=== PATIENT | male | born 2005 | race Caucasian/White ===

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

== ENCOUNTER 2025-01-08 14:29 | Outpatient (CLI) | payer OTHER, SELFPAY ==
[2025-01-08 15:13] LABS: Hematocrit 46.7 % (42.0-52.0); Hemoglobin 15.7 g/dL (14.0-18.0); Mean Corpuscular HGB Conc 33.6 g/dl (32-36); Mean Corpuscular Hemoglobin 28.5 pg (26-34); Mean Corpuscular Volume 84.8 fl (80-100); Platelet Count Result 257 k/mm3 (150-375); Red Blood Count 5.51 M/mm3 (4.6-6.20); Red Cell Distribution Width 12.6 % (11.5-14.5); White Blood Count 6.5 K/mm3 (4.5-10.0)
[2025-01-08 15:29] LABS: Prothrombin Time 13.1 Seconds (11.1-14.7)
[2025-01-08 15:31] LABS: Alanine Aminotransferase 40 U/L (6-50); Albumin Level 4.7 g/dL (3.7-5.6); Alkaline Phosphatase 51 U/L (58-237); Anion Gap 11 mmol/L (4-12); Aspartate Amino Transferase 31 U/L (17-59); Bilirubin,Total 0.8 mg/dL (0.2-1.3); Blood Urea Nitrogen 9 mg/dL (8-21); CRP < 0.5 mg/dL (<1.0); Calcium 9.3 mg/dL (8.9-10.7); Carbon Dioxide 24 mmol/L (22-30); Chloride 105 mmol/L (98-107); Estimated Glomerular Filt Rate > 60; Glucose 97 mg/dL (65-110); Potassium 3.8 mmol/L (3.4-5.0); Sodium 140 mmol/L (134-143); Total Protein 8.5 g/dL (6.3-8.6)
[2025-01-08 16:02] LABS: Erythrocyte Sedimentation Rate 8 mm/hr (0-20)
[2025-01-08 16:13] LABS: Thyroid Stimulating Hormone Reflex 0.947 uIU/mL (0.465-4.68)
[2025-01-10 03:58] LABS: Immunoglobulin A 272 mg/dL (47-310); TTG IGA AB <1.0 U/mL
== END 2025-01-08 14:30 | disposition home or self-care (01) ==
LOC: ANHLAB 14:32
PROVIDERS: PCP Physician Assistant; Visit Provider Nurse Practitioner
DX: K58.0 Irritable bowel syndrome with diarrhea (principal); K21.9 Gastro-esophageal reflux disease without esophagitis; R10.9 Unspecified abdominal pain
CPT/HCPCS: 36415; 80053; 82784; 84443; 85027; 85610; 85652; 86140

== ENCOUNTER 2025-01-28 01:47 | Day surgery (SDC) | payer OTHER, SELFPAY ==
[2025-01-22 14:34] VITALS: BMI 38.3
--- OUTSIDE RECORDS SUMMARY | 2025-01-28 01:49 | XMS_ITS | Clinical Summary ---
Author Organization [facility] Address [address] [place] [address] Care Team Providers Care Roof Truss Machine Tender Name Role Phone Bob Benitez MD Primary Care Provider [phone] Source Comments [facility],non-[facility] Affiliates and Associated Physician Practices is amultiple site organization consisting of ambulatory clinics and hospital sitesin [place], [place], [place] and [place]. This disclosure is being madepursuant to the Care Everywhere program and may not contain all information available regarding this patient. Last updated 18.[facility] [place] Allergies Active Allergy Reactions Criticality Noted Date Comments Penicillins Anaphylaxis High 10/03/2011 Hives & dyspnea Sulfa Drugs Anaphylaxis High 10/03/2011 Hives & breathing difficulty Medications * Be aware that medications may not be up to date on this document. Alwaysverify current medications with the patient. melatonin 1 MG tablet Take 1 Tab by mouth at bedtime. Active fluticasone propionate (FLONASE) 50 MCG/ACT nasal sprayIndications:Al lergic rhinitis,Allergic Conjunctivitis [place] 2 Sprays into each nostril once daily. 1 Bottle 6 3 Active cetirizine (ZYRTEC) 5 MG/5ML syrupIndications:Al lergic rhinitis,Allergic Conjunctivitis Take 2.5 mL by mouth at bedtime. 120 mL 6 3 Active albuterol HFA (PROVENTIL;VENTOLIN ;PROAIR) 108 (90 BASE) MCG/ACT inhalerIndications: Asthma Inhale 2 Puffs by mouth every 6 hours as needed (per an asthma action plan). 1 Inhaler 6 3 Active hydrocortisone (HYTONE) 1 % ointmentIndications :Eczema Apply to affected area 2 times daily as needed (for red, itchy skin). 25 g 6 3 Active Active Problems Problem Noted Date Diagnosed Date Asthma 10/03/2011 Allergic rhinitis 10/03/2011 Overview (10/03/2011): 10/03/11: Allergy SPT + dust mite, mold, tree, ragweed and grass. Allergic conjunctivitis 10/03/2011 Eczema 10/03/2011 Allergy, drug 10/03/2011 Overview (10/03/2011): Penicillins, sulfa antibiotics. Adenoidal hypertrophy 10/03/2011 Urticaria 10/03/2011 Family History Medical History Relation Name Comments Asthma Brother Eczema Brother Allergies Father Allergies Maternal Grandmother Asthma Maternal Grandmother Allergies Mother Relation Name Status Comments Brother Father Maternal Grandmother Mother Social History Tobacco Use Types Packs/Day Years Used Date Smoking Tobacco: Never Assessed Sex and Gender Information Value Date Recorded Sex Assigned at Not on file Legal Sex Male 12:52 PM [employer] Gender Identity Not on file Sexual Orientation Not on file Last Filed Vital Signs Vital Sign Reading Time Taken Comments Blood Pressure 84/54 10/03/2011 1:31 PM CDT Pulse 92 10/03/2011 1:31 PM CDT Temperature - - Respiratory Rate 20 10/03/2011 1:31 PM CDT Oxygen Saturation - - Inhaled Oxygen Concentration - - Weight 23.2 kg (51 lb 1.6 oz) 3 10:22 AM CDT Height 123.2 cm (4' 0.5) 10/02/2012 10 :22 AM CDT Body Mass Index 15.27 10/02/2012 10:22 AM CDT Body Mass Index Percentile 44.23% 10/02 10:22 AM CDT Growth Chart: [facility] (Boys, 2-2 0 Years) Plan of Treatment Health Maintenance Due Date Last Done Comments HIV SCREENING 2020 HPV VACCINE (1 - Male 3-dose series) 2020 MENINGOCOCCAL (Group B) VACC INE SHARED DECISION-MAKING (1 of 2 - Standard) 2021 HEPATITIS C SCREENING 12/15/2023 COVID-19 VACCINE (1 - 2023-2 5 season) 2024 DEPRESSION SCREENING 07/16/2024 DTAP/TDAP/TD VACCINES (1 - Tdap) 2024 HEPATITIS B VACCINE (1 of 3 - 19+ 3-dose series) 2024 INFLUENZA VACCINE (#1) 2025 ZOSTER VACCINE (1 of 2) 12/20/2055 HIB VACCINE Aged Out No longer eligi ble based on patient's age to complete this topic MENINGOCOCCAL GROUPS A/C/Y/W VACCINE Aged Out No longer eligible b ased on patient's age to complete this topic PNEUMOCOCCAL VACCINE Aged Out No long er eligible based on patient's age to complete this topic Insurance MEDICAID - [place] Care Teams Roof Truss Machine Tender Relationship Specialty Start Date End Date Bob Benitez MD [address] [place] [address] JLAYN Jimneez [phone] PCP - General Family Medicine 10/02/12
--- OUTSIDE RECORDS SUMMARY | 2025-01-28 01:50 | XMS_ITS | Clinical Summary ---
Author Organization [facility] Address [address] [place] [address] Care Team Providers Care Greens Keeper Name Role Phone None, Provider MD Primary Care Provider Unavaila ble Allergies Active Allergy Reactions Criticality Noted Date Comments Penicillins Anaphylaxis High 12/11/2024 Sulfa Antibiotics Anaphylaxis High 12/11/2024 Medications ondansetron (ZOFRAN) 4 MG tablet Take 1 tablet (4 mg total) by mouth every 8 (eight) hours as needed for Nausea. 20 tablet 12/12/2024 Active Encounters Date Type Department Care Team Description 12/12/2024 5:20 PM CDT - 12/12/2024 7:45 PM CDT Emergency [facility] [place] [address] Sayra Rogers NP Abdominal Pain; Vomiting Discharge Disposition: Home or Self Care (Routine Discharge) 12/12/2024 Travel 12/11/2024 6:00 AM CDT - 12/11/2024 9:18 AM CDT Emergency [facility] [place] [address] Dar Rios MD Abdominal Pain; Vomiting Discharge Disposition: Home or Self Care with Planned Inpatient Readmission 12/11/2024 Travel from Last 3 Months Social History Tobacco Use Types Packs/Day Years Used Date Smoking Tobacco: Never Smokeless Tobacco: Never Tobacco Cessation:Counseling Given: Not Answered Alcohol Use Standard Drinks/Week Comments Never 0 (1 standard drink = 0.6 oz pur e alcohol) Sex and Gender Information Value Date Recorded Sex Assigned at Male 12/11/2024 6:05 AM CDT Legal Sex Male 7:16 PM CDT Gender Identity Not on file Sexual Orientation Not on file Last Filed Vital Signs Vital Sign Reading Time Taken Comments Blood Pressure 127/96 12/12/2024 6:30 PM CDT Pulse 80 12/12/2024 6:00 PM CDT Temperature 36.7 C (98 F) 12/12/2024 6:30 PM CDT Respiratory Rate 24 12/12/2024 6:30 PM CDT Oxygen Saturation 99% 12/12/2024 6:30 PM CDT Inhaled Oxygen Concentration - - Weight 115.7 kg (255 lb) 12/12/2024 5:11 PM CDT Height 177.8 cm (5' 10) 12/12/2024 5:11 PM CDT Body Mass Index 36.59 12/12/2024 5:11 PM CDT Body Mass Index Percentile 98.40% 12/12/2024 5:1 1 PM CDT Growth Chart: CDC (Boys, 2-2 0 Years) Plan of Treatment Health Maintenance Due Date Last Done Comments Annual Physical 2008 DTaP, Tdap and Td Vaccines (6 - Tdap) 2016 03/14/2012, 06/27/2011, 05/01/2011, Additional history exists HPV Vaccines (1 - Male 3-dose series) 2020 Meningococcal B Vaccine (1 of 2 - Standard) 2021 Hepatitis C 12/20/2023 COVID-19 Vaccine ( - season) 2024 Pneumococcal Vaccine: Pediatrics (0 to 5 Years) and At-Risk Patients (6 to 49 Years) Aged Out 07/02/2006, 05/01/2006, 02/26/2006 No longer eligible based on patient's age to complete this topic Hepatitis B Vaccines Completed 03/14/2012, 06/27/2011, 05/01/2011, Additional history exists Meningococcal Vaccine Aged Out No nando arsalan eligible based on patient's age to complete this topic RSV Immunizations Under 20 Months Aged Out No longer eligible based on patient's age to complete this topic Procedures Procedure Name Priority Date/Time Associated Diagnosis Comments ECG 12-LEAD Routine 12/12/2024 5:42 PM CDT LIPASE STAT 12/12/2024 5:37 PM CDT COMPREHENSIVE METABOLIC PANEL STAT 12/12/2024 5:37 PM CDT CBC W/DIFF AUTOMATED STAT 12/12/2024 5:37 PM CDT LACTIC ACID W REFLEX (SEPSIS) STAT 12/12/2024 5:[address] ABD+PEL W CON STAT 12/11/2024 7:33 AM CDT LIPASE STAT 12/11/2024 6:17 AM CDT COMPREHENSIVE METABOLIC PANEL STAT 12/11/2024 6:17 AM CDT CBC W/DIFF AUTOMATED STAT 12/11/2024 6:17 AM CDT from Last 3 Months Results * ECG 12 lead (12/12/2024 5:42 PM CDT) 12/12/2024 5:42 PM CDT Narrative [facility] RAD - 12/12/2024 10:34 PM CDT [place] [address] Test Date: 2024-12-12 Pat Name: CAITLYN BROWN Department: Room: [facility] Gender: Male Vp Transportation: [id number] : 2005 Requested By: SAYRA ROGERS Order Number: [id number] Reading MD: Alejandro Steinberg Measurements Intervals [place] Rate: 131 P: 48 ND: 138 QRS: 73 QRSD: 85 T: 34 QT: 311 QTc: 460 Interpretive Statements SINUS TACHYCARDIA ABNORMAL RHYTHM ECG No previous ECG available for comparison Procedure Note Alejandro Steinberg MD - 12/12/[address] Test Date: 2024-12-12 Pat Name: CAITLYN BROWN Department: 41 Room: [facility] Gender: Male Vp Transportation: [id number] : 2005 Requested By: SAYRA ROGERS Order Number: [id number] Reading MD: Alejandro Steinberg Measurements Intervals [place] Rate: 131 P: 48 ND: 138 QRS: 73 QRSD: 85 T: 34 QT: 311 QTc: 460 Interpretive Statements SINUS TACHYCARDIA ABNORMAL RHYTHM ECG No previous ECG available for comparison us Sayra Rogers CASH CONTROLLER ECG ORDERABLES Final Result [facility] ([facility] RAD * (ABNORMAL) COMPREHENSIVE METABOLIC PANEL (12/12/2024 5:37 PM CDT) Only the most recent of2 resultswithin the time period is included. GLUCOSE 119(H) 70 - 99 MG/DL 12/12/2024 6:12 PM CDT [facility] BUN 8 7 - 18 MG/DL 12/12/2024 6:12 PM CDT [facility] CREATININE S/P/B 1.00 0.7 - 1.3 MG/DL 12/12/2024 6:12 PM CDT [facility] SODIUM S/P/B 139 136 - 145 MMOL/L 12/12/2024 6:12 PM CDT [facility] POTASSIUM S/P/B 3.4(L) 3.5 - 5.1 MMOL/L 12/12/2024 6:12 PM CDT [facility] CHLORIDE S/P/B 108 97 - 115 MMOL/L 12/12/2024 6:12 PM CDT [facility] CO2 21.8 21 - 32 MMOL/L 12/12/2024 6:12 PM CDT [facility] CALCIUM S/P/B 10.3(H) 8.5 - 10.1 MG/DL 12/12/2024 6:12 PM T [facility] BILIRUBIN TOTAL S/P/B 1.6(H) 0.2 - 1.1 MG/DL 12/12/2024 6:12 PM CDT [facility] Comment: THIS ASSAY IS NOT RECOMMENDED FOR PATIENTS UNDERGOING TREATMENT WITH ELTROMBOPAG DUE TO THE POTENTIAL FOR FALSELY ELEVATED RESULTS. TOTAL PROTEIN S/P/B 9.2(H) 6.4 - 8.2 G/DL 12/12/2024 6:12 PM T [facility] ALBUMIN S/P/B 4.7 3.4 - 5.0 G/DL 12/12/2024 6:12 PM T [facility] AST 41(H) 15 - 37 U/L 12/12/2024 6:12 PM T [facility] ALT 69(H) 16 - 60 U/L 12/12/2024 6:12 PM T [facility] ALKALINE PHOSPHATASE S/P/B 65 65 - 260 U/L 12/12/2024 6:12 PM T [facility] ANION GAP 9.2 2 - 10 MMOL/L 12/12/2024 6:12 PM T [facility] BUN CREATININE RATIO 8.0 6 - 26 12/12/2024 6:12 PM T [facility] A/G RATIO 1.0 1.0 - 2.0 RATIO 12/12/2024 6:12 PM T [facility] GFR ESTIMATE >90 >90 ML/MIN/1.7 3 M2 12/12/2024 6:12 PM CDT [facility] Comment: NOTE: eGFR is not calculated for patients <18 years of age or gender unknown. This is an estimated GFR calculation using the new CKD EPI creatinine equation without race and so does not require a correction factor for race. This estimated GFR should not be used for calculating drug doses. 12/12/2024 5:37 PM CDT us Sayra Rogers NP LABORATORY Final Result [facility] [address] [place] [address], [place] [phone] * (ABNORMAL) CBC W/DIFF AUTOMATED (12/12/2024 5:37 PM CDT) Only the most recent of2 resultswithin the time period is included. WBC 9.77 4.5 - 13.0 x10'3/uL 12/12/2024 5:46 PM CDT [facility] RBC 6.01 4.70 - 6.10 x10'6/uL 12/12/2024 5:46 PM CDT [facility] HGB 17.0 14.0 - 18.0 G/DL 12/12/2024 5:46 PM CDT [facility] HCT 48.3 43.0 - 54.0 % 12/12/2024 5:46 PM CDT [facility] MCV 80.4 80.0 - 94.0 FL 12/12/2024 5:46 PM CDT [facility] MCH 28.3 27.0 - 31.0 PG 12/12/2024 5:46 PM CDT [facility] MCHC 35.2 32.0 - 36.0 G/DL 12/12/2024 5:46 PM CDT [facility] RDW 12.7 11.5 - 14.5 % 12/12/2024 5:46 PM CDT [facility] PLT 313 130 - 400 x10'3/uL 12/12/2024 5:46 PM CDT [facility] MPV 11.6 9.3 - 12.2 FL 12/12/2024 5:46 PM CDT [facility] DIFFERENTIAL TYPE AUTOMATED DIFFERENTIAL 12/12/2024 5:46 PM CDT [facility] NEUTROPHILS % 72.7 % 12/12/2024 5:46 PM CDT [facility] LYMPHOCYTES % 16.2 % 12/12/2024 5:46 PM CDT [facility] MONOCYTES % 9.4 % 12/12/2024 5:46 PM CDT [facility] EOSINOPHILS 0.7 % 12/12/2024 5:46 PM CDT [facility] BASOPHILS 0.6 % 12/12/2024 5:46 PM CDT [facility] IMMATURE GRANS % 0.4 % 12/13/19 5:46 PM CDT [facility] ABS. NEUTROPHILS 7.10 1.80 - 8.00 x10'3/uL 12/12/2024 5:46 PM CDT [facility] ABS. LYMPHOCYTES 1.58 1.20 - 5.20 x10'3/uL 12/12/2024 5:46 PM CDT [facility] ABS. MONOCYTES 0.92(H) 0.30 - 0.82 x10'3/uL 12/12/2024 5:46 PM CDT [facility] ABS. EOSINOPHILS 0.07 0.04 - 0.54 x10'3/uL 12/12/2024 5:46 PM CDT [facility] ABS. BASOPHILS 0.06 0.01 - 0.08 x10'3/uL 12/12/2024 5:46 PM CDT [facility] ABS. IMMATURE GRANULOCYTES 0.04 0.00 - 0.49 x10'3/uL 12/12/2024 5:46 PM CDT [facility] 12/12/2024 5:37 PM CDT Sayra Rogers NP LABORATORY Final Result Performing Organization Address City/[facility]/ZIP Co de Phone Number [facility] [address] [place] [address], [place] [phone] * LIPASE (12/12/2024 5:37 PM CDT) Only the most recent of2 resultswithin the time period is included. LIPASE 27 13 - 75 UNITS/L 12/12/2024 6:12 PM CDT [facility] 12/12/2024 5:37 PM CDT Sayra Rogers NP LABORATORY Final Result Performing Organization Address [facility] de Phone Number [facility] [address] [place] [address], [place] [phone] * (ABNORMAL) LACTIC ACID W REFLEX (SEPSIS) (12/12/2024 5:36 PM CDT) LACTIC ACID VENOUS 2.1(H) 0.4 - 2.0 MMOL/L 12/12/2024 6:26 PM CDT [facility] Comment: Critical Result(s) Called at: 18:25:48 on 12/12/2024 by: NASRIN LUNDBERG to and read back by:ISIAH GUADALUPE RN 12/12/2024 5:36 PM CDT us Sayra Rogers NP LABORATORY Final Result Performing Organization Address City/[facility]/ZIP Co de Phone Number [facility] [address] [place] [address], * CT ABD+PEL W CON (12/11/2024 7:33 AM CDT) Anatomical Region Laterality Modality Abdomen Computed Tomogra phy 12/11/2024 7:56 AM CDT Impressions 12/11/2024 8:33 AM CDT IMPRESSION: 1. No bowel obstruction. No free air. Normal appendix. 2. No ureteral stones. No hydronephrosis. 3. Sub-6 mm lung nodule, right lower lobe. Recommend follow-up CT chest without contrast in one year (Per Fleischner Society guidelines). Any follow-up recommendations contained in this report for incidentally detected pulmonary nodules were made according to current recommended guidelines based at a minimum on nodule size and patient risk factors. Referred By: Interpreted By: Rafael Woodruff MD, 12/11/2024 7:56 AM Narrative 12/11/2024 8:33 AM CDT [facility] [address] [place], [place] [address] EXAMINATION: CT ABD+PEL W CON DATE: 12/11/2024 7:15 AM CLINICAL HISTORY: Abdominal pain. presents with abdominal pain. Reports pain is mainly located in the left upper and lower quadrant. Reports associated nausea and vomiting. Symptoms been going on for 3 to 4 days. No fevers or chills COMPARISON: None. TECHNIQUE: Computed tomography of the abdomen and pelvis was obtained after administration of intravenous contrast, 100 mL of Isovue-370, without immediate complication according to routine protocol. A dose lowering technique was used for this procedure, which may include, but is not limited to, dose reduction technique, automated exposure control, the use of iterative reconstruction, and ALARA (As Low As Reasonably Achievable) / Image Gently techniques. FINDINGS: Bases of lungs are unremarkable. Sub-6 mm lung nodule in the right lower lobe. Normal heart size. No significant pericardial effusion. The liver, spleen, pancreas, and adrenal glands are normal. Phrygian cap, gallbladder. Kidneys enhance symmetrically and promptly. No ureteral stones. No hydronephrosis. Abdominal aorta is normal in caliber. No retroperitoneal hematoma. No bowel obstruction. No free air. No ascites. Normal appendix. Subcentimeter retroperitoneal and mesenteric lymph nodes. No large free pelvic fluid. Nondistended urinary bladder. No inguinal or pelvic lymphadenopathy. No destructive bone lesions. Procedure Note Rafael Woodruff MD - 12/11/2024 [facility] [address] [place], [place] [address] EXAMINATION: CT ABD+PEL W CON DATE: 12/11/2024 7:15 AM CLINICAL HISTORY: Abdominal pain. presents with abdominal pain. Reportspain is mainly located in the left upper and lower quadrant. Reportsassociated nausea and vomiting. Symptoms been going on for 3 to 4 days.No fevers or chills COMPARISON: None. TECHNIQUE: Computed tomography of the abdomen and pelvis was obtainedafter administration of intravenous contrast, 100 mL of Isovue-370,without immediate complication according to routine protocol. A doselowering technique was used for this procedure, which may include, but isnot limited to, dose reduction technique, automated exposure control, theuse of iterative reconstruction, and ALARA (As Low As ReasonablyAchievable) / Image Gently techniques. FINDINGS: Bases of lungs are unremarkable. Sub-6 mm lung nodule in the right lowerlobe. Normal heart size. No significant pericardial effusion. The liver, spleen, pancreas, and adrenal glands are normal. Phrygian cap,gallbladder. Kidneys enhance symmetrically and promptly. No ureteralstones. No hydronephrosis. Abdominal aorta is normal in caliber. No retroperitoneal hematoma. Nobowel obstruction. No free air. No ascites. Normal appendix.Subcentimeter retroperitoneal and mesenteric lymph nodes. No large free pelvic fluid. Nondistended urinary bladder. No inguinal orpelvic lymphadenopathy. No destructive bone lesions. IMPRESSION: 1. No bowel obstruction. No free air. Normal appendix. 2. No ureteral stones. No hydronephrosis. 3. Sub-6 mm lung nodule, right lower lobe. Recommend follow-up CT chestwithout contrast in one year (Per Fleischner Society guidelines). Anyfollow-up recommendations contained in this report for incidentallydetected pulmonary nodules were made according to current recommendedguidelines based at a minimum on nodule size and patient risk factors. Referred By: Interpreted By: Rafael Woodruff MD, 12/11/2024 7:56 AM Dar Rios MD CT Final Result from Last 3 Months Insurance [place] Care Teams Greens Keeper Relationship Specialty Start Date End Date None, Provider, PCP - General UNKNOWN PHYSICIAN SPECIALTY 12/11/24
[2025-01-28 08:16] VITALS: BP 141/61; PULSE 86; RESP 20; TEMP 36.7; O2SAT 99; BMI 39.1
--- NOTE | 2025-01-28 08:23 | SUR.PREOP ---
Patient reports drinking powerade at 0800 in [address]. Patient states I couldn't peel my lips apart I needed something to drink. Dr. Fernandez aware.
[2025-01-28] MEDS: LACTATED RINGERS 1,000 ML 150 ML IV CONT (08:29)
[2025-01-28] MEDS: SIMETHICONE ORAL SUSPENSION 20 MG/0.3 ML 30 ML BOTTLE 1.8 ML PO (08:33)
--- NOTE | 2025-01-28 08:44 | P.PNAN_ITS ---
Anes - Initial Pre Proc Eval Procedure: Operation Date: 01/28/25 09:30 Proposed Procedures p EGD & Diagnostic Colonoscopy - Compa Srinivasan MD Date/Time: 01/28/25 08:44 Surgeon: Compa Srinivasan MD Pre Op Diagnosis: Other specified diseases of the digestive system Patient Data Age: 19 Gender: M Height: 1.73 m Weight: 116.8 kg Last Vital Signs Temp 98.1 F 01/28/25 08:16 Pulse 86 01/28/25 08:16 Resp 20 01/28/25 08:16 BP 141/61 H 01/28/25 08:16 Pulse Ox 99 01/28/25 08:16 O2 Del Method Room Air 01/28/25 08:16 Allergies Allergy/AdvReac Type Severity Reaction Status Date / Time amoxicillin (From Augmentin) Allergy Rash Verified 01/28/25 08:15 clavulanic acid (From Allergy Rash Verified 01/28/25 08:15 Augmentin) Penicillins Allergy Rash Verified 01/28/25 08:15 Sulfa (Sulfonamide Allergy Rash Verified 01/28/25 08:15 Antibiotics) Home Medications ?Medication ?Instructions ?Recorded ?Confirmed ?Type amitriptyline 25 mg tablet 25 mg PO QHS 01/08/25 01/28/25 History hyoscyamine sulfate 0.125 mg 0.125 mg PO QID abdominal pain 01/08/25 01/28/25 Rx tablet (Levsin) #120 tabs pantoprazole 40 mg tablet,delayed 40 mg PO QAM #30 tabs 01/08/25 01/28/25 Rx release Patient hx anesthesia problems: none Family hx anesthesia problems: none Results Review: All pre-operative results and documents have been reviewed as part of the pre- operative evaluation. FOR[facility]LY [facility] Social History Social History Smoking status: Current every day smoker Substance use type: marijuana Living arrangements: with family Spiritual care concerns: No Anes - Eval Final PreProcedure Day of Procedure 01/28/25 08:44 Patient weight: morbidly obese Heart: regular rate and rhythm Lungs: clear to auscultation Airway: Mallampati scale class II Neurological: alert and oriented Last oral intake: >/= 8 hours ASA classification: III Emergent: no Anesthetic plan: proceed Anesthesia type and monitoring: general GIVS and standard monitoring Results Review: All pre-operative results and documents have been reviewed as part of the pre- operative evaluation. Informed Consent: The patient's anesthetic plan and its attendant risks and benefits were discussed with the patient/family/POA. Questions were solicited and answers provided to the satisfaction of the patient/family/POA.
--- NOTE | 2025-01-28 09:11 | P.HP_ITS ---
H&P: HPI History of Present Illness Date/Time: 01/28/25 09:11 Chief Complaint: Chronic diarrhea- GERD-dyspepsia Narrative: this patient has more than 10 years of chronic diarrhea, sometimes associated with minimal blood, especially accompanied by abdominal pain crisis which are sometimes severe. He denies weight loss, nausea vomiting but does endorse significant heartburn and epigastric discomfort after eating. He is referred for EGD and colonoscopy. Review of Systems Review of Systems: All systems reviewed & are unremarkable except as noted in HPI and below PMFSH Social History Social History Smoking status: Current every day smoker Substance use type: marijuana Living arrangements: with family Spiritual care concerns: No Meds Home Medications and Allergies Home Medications ?Medication ?Instructions ?Recorded ?Confirmed ?Type amitriptyline 25 mg tablet 25 mg PO QHS 01/08/25 01/28/25 History hyoscyamine sulfate 0.125 mg 0.125 mg PO QID abdominal pain 01/08/25 01/28/25 Rx tablet (Levsin) #120 tabs pantoprazole 40 mg tablet,delayed 40 mg PO QAM #30 tabs 01/08/25 01/28/25 Rx release Allergies Allergy/AdvReac Type Severity Reaction Status Date / Time amoxicillin (From Augmentin) Allergy Rash Verified 01/28/25 08:15 clavulanic acid (From Allergy Rash Verified 01/28/25 08:15 Augmentin) Penicillins Allergy Rash Verified 01/28/25 08:15 Sulfa (Sulfonamide Allergy Rash Verified 01/28/25 08:15 Antibiotics) Vital Signs Vital Signs - 24 hr 01/28/25 08:16 Temperature 98.1 F Pulse Rate 86 Respiratory Rate 20 Blood Pressure 141/61 H Pulse Oximetry 99 Oxygen Delivery Room Air Exam Const: General: cooperative and healthy appearing Resp: Effort & Inspection: normal respiratory effort and able to speak in complete sentences Auscultation: clear to auscultation bilaterally Cardio: Rate: regular rate Rhythm: regular rhythm GI: Inspection: normal to inspection GI Palp: No No hepatosplenomegaly present Auscultation: normal bowel sounds Rectal Exam: deferred Skin: General skin exam: normal color Psych: Appearance: grossly normal Mental Status: mental status grossly normal Assessment and Plan Assessment and plan (1) Diarrhea: Code(s): R19.7 - Diarrhea, unspecified Status: Acute Assessment and Plan: The patient is deemed a good candidate for the procedures. Consent signed. Will proceed.
--- NOTE | 2025-01-28 09:32 | SUR.OPER ---
EGD ended at 926, colon began at 932.
--- NOTE | 2025-01-28 09:35 | S_PTH ---
PATIENT: Stephon Chavira LOC: [facility] U#:[id number] AGE/SX: 19/M ROOM: RE01/28/[address]: Compa Srinivasan MD : 2005 BED: DIS: 01/28/2025 SPEC #: [id number] RECD: 01/28/25 11:05 STATUS: KASSY REPrvain #: [id number] QUINN: 01/28/25 09:[address]: Compa Srinivasan DEPT: [facility] Surgical RECD BY: Sheila Smith ENTERED: 01/28/25 11:06 SP TYPE: Surgical OTHR DR: Abiola Marr, PA Tissues: A - Duodenal Biopsy B - Gastric Biopsy C - Gastric Biopsy D - Esophageal Biopsy E - Small Bowel Bx F - Colon Biopsy G - Colon Biopsy Procedures: Hematoxylin and Eosin Stain Gross and Microscopic Level 4
[2025-01-28 09:45] VITALS: BP 112/66; PULSE 89; RESP 22; O2SAT 100
[2025-01-28 09:55] VITALS: BP 116/57; PULSE 79; RESP 19; O2SAT 98
[2025-01-28 10:05] VITALS: BP 104/66; PULSE 86; RESP 18; O2SAT 98
== END 2025-01-28 10:19 | disposition home or self-care (01) ==
PROVIDERS: PCP Physician Assistant; Referring Provider Nurse Practitioner; Visit Provider Internal Medicine Gastroenterology
PROC: 0DJ08ZZ Inspection of Upper Intestinal Tract, Via Natural or Artificial Opening Endoscopic (ICD-10-PCS; CPT 45378; principal; 2025-01-28 09:30)
DX: K29.30 Chronic superficial gastritis without bleeding (principal); K21.9 Gastro-esophageal reflux disease without esophagitis; K52.9 Noninfective gastroenteritis and colitis, unspecified; F17.210 Nicotine dependence, cigarettes, uncomplicated; F12.90 Cannabis use, unspecified, uncomplicated
CPT/HCPCS: 43239; 45380; 88305; J2704; J7120

== ENCOUNTER 2025-03-11 08:07 | Outpatient (CLI) | payer OTHER, SELFPAY ==
--- NOTE | ~2025-03-11 | NM_ITS ---
EXAMINATION: NM_HEPATWP_NM DATE: 03/11/2025 13:25 INDICATION: Abdominal pain COMPARISON: None. TECHNIQUE: 4.6 mCi Tc-99m mebrofenin (Choletec) was administered intravenously. Scintigraphic images of the abdomen were obtained for one hour. 2.4 mcg sincalide (Kinevac) was administered by slow intravenous infusion, and imaging was continued for 30 minutes. Gallbladder ejection fraction was calculated by the technologist. FINDINGS: There is normal clearance of radiotracer from the blood pool. There is homogeneous tracer uptake by the liver. Activity progresses to the gallbladder and bowel. The gallbladder ejection fraction (GBEF) is 92% (normal 10-90%, but most patient with gallbladder dysfunction have GBEF < 35% which does overlap with the normal range). IMPRESSION: 1. Increased gallbladder ejection fraction of 92% which could be seen with hyperkinetic biliary dyskinesia. Reviewed, dictated and finalized at location A. IMPRESSION: 1. Increased gallbladder ejection fraction of 92% which could be seen with hyp erkinetic biliary dyskinesia.
--- OUTSIDE RECORDS SUMMARY | 2025-03-11 08:10 | XMS_ITS | Clinical Summary ---
Author Organization [facility] Address [address] [place] [address] Care Team Providers Care Painter Assistant Name Role Phone Bob Benitez MD Primary Care Provider [phone]- [phone] Source Comments [facility],non-[facility] Affiliates and Associated Physician Practices is amultiple site organization consisting of ambulatory clinics and hospital sitesin [place], [place], [place] and [place]. This disclosure is being madepursuant to the Care Everywhere program and may not contain all information available regarding this patient. Last updated 18.[facility] [employer] Allergies Active Allergy Reactions Criticality Noted Date [...] 50 MCG/ACT nasal sprayIndications:Al lergic rhinitis,Allergic Conjunctivitis Urich 2 Sprays into each nostril once daily. 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
== END 2025-03-11 08:08 | disposition home or self-care (01) ==
PROVIDERS: PCP Physician Assistant; Visit Provider Nurse Practitioner
DX: K21.9 Gastro-esophageal reflux disease without esophagitis (principal); R10.9 Unspecified abdominal pain; R11.2 Nausea with vomiting, unspecified
CPT/HCPCS: 78227; A9537; J2805

== ENCOUNTER 2025-03-25 08:22 | Outpatient (CLI) | payer OTHER, SELFPAY ==
--- NOTE | ~2025-03-25 | US_ITS ---
US abdomen limited Indication: abdominal pain and nausea and vomiting Comparison: None Technique: Bates-scale and color Doppler images were obtained. Findings: LIVER: Mild increased echogenicity of the liver. . The liver measures 17.9 cm. GALLBLADDER/BILIARY: Unremarkable.No cholelithiais, wall thickening or pericholecystic fluid. No biliary dilatation. CBD 3 mm. [place] sign negative. PANCREAS: Pancreas limited by bowel gas. Right Kidney: Right kidney was not imaged. Impression: 1. Mild hepatic steatosis versus hepatocellular disease Reviewed, dictated and finalized at location A. Impression: 1. Mild hepatic steatosis versus hepatocellular disease
== END 2025-03-25 08:23 | disposition home or self-care (01) ==
PROVIDERS: PCP Physician Assistant; Visit Provider Nurse Practitioner
DX: K21.9 Gastro-esophageal reflux disease without esophagitis (principal); R10.9 Unspecified abdominal pain; R11.2 Nausea with vomiting, unspecified; K76.0 Fatty (change of) liver, not elsewhere classified
CPT/HCPCS: 76705